=== PATIENT | male | born 1985 | race Caucasian/White ===

== ENCOUNTER 2017-12-16 05:59 | Emergency (ER) | payer BC, OTHER ==
[~2017-12-16] VITALS: Ht 180.3 cm; Wt 113.0 kg
[2017-12-16 06:11] VITALS: BP 135/70; PULSE 85; RESP 16; TEMP 97.7; O2SAT 100
[2017-12-16] MEDS ORDERED: LAMI200T PO (06:50)
[2017-12-16] MEDS ORDERED: DIAZ5 PO (06:50)
[2017-12-16] MEDS ORDERED: BUPR150CR PO (06:50)
[2017-12-16] MEDS ORDERED: LEXA10TA PO (06:50)
[2017-12-16] MEDS ORDERED: HYDR-2376 PO (06:50)
--- NOTE | 2017-12-16 07:03 | PD ---
HPI Chief Complaint: Cold / Flu Symptoms Time Seen by Provider: 06:44 Travel History International Travel<30 days: No Contact w/Intl Traveler<30days: No Traveled to known affect area: No History of Present Illness HPI The patient is a 32-year-old male who woke up this morning somewhat confused and walking around the room not knowing he was asleep or not and developed a severe cough. The cough is actually been going on for 4 days but was more severe this morning. He has a sharp, pleuritic chest pain on the bilateral anterior chest associated with the coughing and it is a 3/10. Is not particularly short of breath at this time. He states he had a fever of 102 on Monday, 5 days ago. He does not smoke tobacco or drink alcohol. He is bipolar and takes Valium, lamotrigine, Wellbutrin and Lexapro. He also takes for chronic pain hydrocodone 7.5 mg. He is trying to wean himself off of hydrocodone as well as Valium. He states he does have a history of both pneumonia and bronchitis in the past. PFSH Past Medical History Bipolar Disorder: Yes Tetanus Vaccination: < 5 Years Influenza Vaccination: No Past Surgical History Surgical History: No Previous Surgery Social History Alcohol Use: No Tobacco Use: No Substance Use: No Allergies-Medications (Allergen,Severity, Reaction): Coded Allergies: No Known Allergies (Unverified , 12/16/17) Reported Meds & Prescriptions Reported Meds & Active Scripts Active Reported Hydrocodone-Acetaminophen 7.5-300 Mg Tab 1 Tab PO Q4H PRN Valium (Diazepam) 5 Mg Tab 5 Mg PO BID PRN Wellbutrin SR 12 HR (Bupropion HCl) 150 Mg Tab 150 Mg PO Q12HR Lexapro (Escitalopram Oxalate) 10 Mg Tab 10 Mg PO DAILY Lamictal (Lamotrigine) 200 Mg Tab 200 Mg PO BID Review of Systems Except as stated in HPI: all other systems reviewed are Neg Physical Exam Narrative GENERAL: The patient is alert, oriented 3 and answers questions quickly and appropriately in no respiratory distress. His vital signs are normal and oximetry is 100%. SKIN: Focused skin assessment warm/dry. HEAD: Atraumatic. Normocephalic. EYES: Pupils equal and round. No scleral icterus. No injection or drainage. ENT: No nasal bleeding or discharge. Mucous membranes pink and moist. NECK: Trachea midline. No JVD. CARDIOVASCULAR: Regular rate and rhythm. No murmur appreciated. RESPIRATORY: No accessory muscle use. Clear to auscultation. Breath sounds equal bilaterally. GASTROINTESTINAL: Abdomen soft, non-tender, nondistended. Hepatic and splenic margins not palpable. MUSCULOSKELETAL: No obvious deformities. No clubbing. No cyanosis. No edema. NEUROLOGICAL: Awake and alert. No obvious cranial nerve deficits. Motor grossly within normal limits. Normal speech. PSYCHIATRIC: Appropriate mood and affect; insight and judgment normal. Data Data Last Documented VS Vital Signs Date Time Temp Pulse Resp B/P (MAP) Pulse Ox O2 Delivery O2 Flow Rate FiO2 12/16/17 06:11 97.7 85 16 135/70 (91) 100 Orders Orders Chest, Pa & Lat (12/16/17 06:52) Influenzae A/B Antigen (12/16/17 06:52) MDM Medical Decision Making Medical Screen Exam Complete: Yes Emergency Medical Condition: Yes Medical Record Reviewed: Yes Differential Diagnosis Pneumonia, bronchitis, viral upper respiratory infection, anxiety, flu syndrome Narrative Course It is now 0700 and the patient is transferred to Dr. Lieberman. Serafin Price MD Dec 16, 2017 07:03
--- NOTE | 2017-12-16 07:05 | RADRPT ---
EXAM DATE/TIME: 12/16/2017 06:55 [facility] COMPARISON: No previous studies available for comparison. INDICATIONS : Cough. MEDICAL HISTORY : None. SURGICAL HISTORY : None. ENCOUNTER: Initial ACUITY: 4 - 6 days PAIN SCORE: 0/10 LOCATION: Bilateral chest FINDINGS: PA and lateral views of the chest demonstrate the lungs to be symmetrically aerated without evidence of mass, infiltrate or effusion. The cardiomediastinal contours are unremarkable. Osseous structure s are intact. CONCLUSION: Normal examination. Karel Murdock MD on December 16, 2017 at 7:02 Board Certified Radiologist. This report was verified electronically.
--- NOTE | 2017-12-16 07:22 | PD ---
Physical Exam Date Seen by Provider: Dec 16, 2017 Narrative Care was assumed from Dr. Price at 7 AM pending chest x-ray and flu screen. Both studies have now been done. The patient presents with a four-day history of cough and cold symptoms. Data Data Last Documented VS Vital Signs Date Time Temp Pulse Resp B/P (MAP) Pulse Ox O2 Delivery O2 Flow Rate FiO2 12/16/17 06:11 97.7 85 16 135/70 (91) 100 Orders Orders Chest, Pa & Lat (12/16/17 06:52) Influenzae A/B Antigen (12/16/17 06:52) MDM Supervised Visit with CHLOÉ: No Narrative Course Last Impressions Chest X-Ray 12/16/17651 Signed Impressions: Service Date/Time: Saturday, December 16, 2017 06:55 - CONCLUSION: Normal examination. Karel Murdock MD Flu test is negative. The patient will be discharged home with instructions in the symptomatic treatment of a cold. Diagnosis Primary Impression: Upper respiratory infection Qualified Codes: J06.9 - Acute upper respiratory infection, unspecified Patient Instructions: General Instructions, Upper Respiratory Infection (DC) Additional Instruction: I recommend the use of a Neti Pot. You may use a nasal spray such as Afrin for up to 3 days as needed for nasal congestion. You may take an ylag-zsa-erzekra antihistamine such as Zyrtec, Alice or Claritin as needed for runny secretions. You may take pseudoephedrine as needed for congestion. You will need to sign for this at the pharmacy. You may take plain Mucinex, 1200 mg twice a day as needed for thick secretions. You may take a cough syrup such as Delsym as needed for cough. Motrin as needed for fever and body aches. Throat lozenges/sprays as needed for sore throat. Warm salt water gargles for sore throat. Hot tea with lemon and honey also helps soothe a sore throat. Disposition: 01 DISCHARGE HOME Condition: Stable Nina Lieberman MD Dec 16, 2017 07:22
== END 2017-12-16 07:36 | disposition home or self-care (01) ==
LOC: PHED 05:59
DX: J06.9 Acute upper respiratory infection, unspecified (principal); R41.0 Disorientation, unspecified; F31.9 Bipolar disorder, unspecified; G89.29 Other chronic pain
CPT/HCPCS: 71046; 87804; 99284